=== PATIENT | male | born 1995 | race Caucasian/White ===

== ENCOUNTER 2016-12-11 22:19 | Emergency (ER) | payer SELFPAY ==
[~2016-12-11] VITALS: Ht 190.5 cm; Wt 74.8 kg
--- NOTE | 2016-12-11 23:02 | NUR ---
Patient to ER bed 2 to gown for evaluation. Side rails up. Report given to Dora DOS SANTOS.
[2016-12-11 23:08] VITALS: BP_SYST 95
--- NOTE | 2016-12-11 23:10 | NUR ---
Patient to ER C/O right knee pain post injury while playing sports. Patient C/O 5/10 knee pain, no deformity, mild reddness & swelling. Able to walk with a limp. AAOx4, unlabored breathing, no signs of acute distress.
--- NOTE | 2016-12-11 23:18 | NUR ---
ER MD Farley at bedside for evaluation
[2016-12-12 00:38] VITALS: BP_SYST 106
--- NOTE | 2016-12-12 00:38 | NUR ---
Patient given written and verbal discharge instructions and verbalizes understanding. ER MD Farley discussed with patient the results and treatment provided. Patient in stable condition. ID arm band removed. Patient educated on pain management and to follow up with PMD. Pain Scale 0/10. Opportunity for questions provided and answered.
== END 2016-12-12 00:38 | disposition home or self-care (01) ==
LOC: SED 22:19
DX: M25.561 Pain in right knee (principal)
CPT/HCPCS: 73564; 99284